=== PATIENT | female | born 1970 | race Caucasian/White ===

== ENCOUNTER 2017-05-31 15:09 | Emergency (ER) | payer MEDICAID ==
[2017-05-31 15:10] VITALS: BMI 25.8
[2017-05-31 15:50] VITALS: TEMP 98.2
[2017-05-31 16:57] VITALS: RESP 18
--- NOTE | 2017-05-31 19:12 | ED PDOC ---
Arrival/HPI - General Chief Complaint: Back Pain Time Seen by Provider: 05/31/17 16:35 Historian: Patient, Family - History of Present Illness Narrative History of Present Illness (Text): 05/31/17 18:43 47-year-old female with a history of chronic low back pain presents today status post fall last night. Patient states around 8 PM last night she developed pain in her low back which caused her to fall backwards hitting her back into the wall. Patient states that at that time she had pain in the neck which was minimal. pt denies hitting her head. no loc. no n/v/d/c. no abdominal pain. no urinary symptoms. Patient states when she woke up today the pain in the neck was more severe. Patient describes a stiffness in the neck as well as pain in the mid neck and midline of the upper back. Patient states she has chronic low back pain and a history of herniated disks with occasional numbness and tingling in the left leg. Patient states these symptoms are being followed by a specialist. Past Medical History - Provider Review Nursing Documentation Reviewed: Yes - Travel History Have you recently traveled outside [place] w/in the past 3 mons?: No - Infectious Disease Hx of Infectious Diseases: None - Tetanus Immunization Tetanus Immunization: Unknown - Cardiac Hx Cardiac Disorders: Yes Hx Hypertension: Yes - Pulmonary Hx Respiratory Disorders: No Hx Tuberculosis: No - Neurological Hx Neurological Disorder: Yes - HEENT Hx HEENT Disorder: No - Renal Hx Renal Disorder: No - Endocrine/Metabolic Hx Endocrine Disorders: Yes Hx Diabetes Mellitus Type 2: Yes - Hematological/Oncological Hx Blood Disorders: No Hx Cancer: No - Integumentary Hx Dermatological Disorder: No - Musculoskeletal/Rheumatological Hx Musculoskeletal Disorders: Yes Hx Back Pain: Yes - Gastrointestinal Hx Gastrointestinal Disorders: No - Genitourinary/Gynecological Hx Genitourinary Disorders: No Hx Sexually Transmitted Diseases: No - Psychiatric Hx Psychophysiologic Disorder: No Hx Depression: No Hx Emotional Abuse: No Hx Physical Abuse: No Hx Substance Use: No - Surgical History Hx Appendectomy: Yes - Anesthesia Hx Anesthesia: Yes - Suicidal Assessment Feels Threatened In Home Enviroment: No Family/Social History - Physician Review Nursing Documentation Reviewed: Yes Family/Social History: Unknown Family HX Smoking Status: Never Smoked Hx Alcohol Use: No Hx Substance Use: No Hx Substance Use Treatment: No Allergies/Home Meds Allergies/Adverse Reactions: Allergies No Known Allergies Allergy (Verified 05/31/17 15:42) Home Medications: Home Meds Medication Instructions Recorded Confirmed Cyclobenzaprine [Cyclobenzaprine 10 mg PO BID 12/16/15 05/31/17 HCl] Escitalopram Oxalate [Lexapro] 5 mg PO BID 12/16/15 05/31/17 Gabapentin [Neurontin] 300 mg PO TID 12/16/15 05/31/17 Lisinopril [Zestril] 10 mg PO BID 12/16/15 05/31/17 Sitagliptin Phos/Metformin HCl 1 each PO BID 12/16/15 05/31/17 [Janumet 50-1,000 mg Tablet] Tramadol HCl [Ultram] 50 mg PO BID PRN 12/16/15 05/31/17 amLODIPine [Norvasc] 5 mg PO DAILY 12/16/15 05/31/17 Review of Systems - Review of Systems Constitutional: absent: Fatigue, Fevers ENT: absent: Sore Throat, Sinus Congestion Respiratory: absent: SOB, Cough Cardiovascular: absent: Chest Pain, Palpitations Gastrointestinal: absent: Abdominal Pain, Nausea, Vomiting Genitourinary Female: absent: Dysuria Musculoskeletal: Back Pain, Neck Pain. absent: Arthralgias Skin: absent: Rash, Pruritis Neurological: absent: Headache, Dizziness Psychiatric: absent: Anxiety, Depression Physical Exam Vital Signs Reviewed: Yes Vital Signs Temp Pulse Resp BP Pulse Ox 05/31/17 18:56 75 18 143/79 99 05/31/17 16:56 79 18 145/86 99 05/31/17 15:49 98.2 F 84 16 148/92 H 99 Temperature: Afebrile Blood Pressure: Hypertensive Pulse: Regular Respiratory Rate: Normal Appearance: Positive for: Well-Appearing, Non-Toxic, Uncomfortable Pain Distress: Mild Mental Status: Positive for: Alert and Oriented X 3 - Systems Exam Head: Present: Atraumatic Pupils: Present: PERRL Extroacular Muscles: Present: EOMI Mouth: Present: Moist Mucous Membranes Nose (Internal): Present: Normal Inspection Neck: Present: MIDLINE TENDERNESS, Paraspinal Tenderness, Trachea Midline, Other (+ bilateral trapezius tenderness. ). No: Normal Range of Motion (stiff ROM Of neck. torticollis), Meningeal Signs Respiratory/Chest: Present: Clear to Auscultation, Good Air Exchange. No: Respiratory Distress, Accessory Muscle Use Cardiovascular: Present: Regular Rate and Rhythm, Normal S1, S2. No: Murmurs Abdomen: No: Tenderness, Rebound, Guarding Back: Present: Normal Inspection, Midline Tenderness (+ midline and paraspinal thoracic tenderness. paraspinal lumbar tenderness; no edema, no erythema, no ecchymosis. ) Upper Extremity: Present: Normal Inspection, Normal ROM, Capillary Refill < 2s, Other (no shoulder tenderness. ). No: Tenderness, Swelling Lower Extremity: Present: Normal Inspection, Normal ROM, Capillary Refill < 2 s Neurological: Present: GCS=15, Motor Func Grossly Intact, Normal Sensory Function, Gait Normal Skin: Present: Warm, Dry, Normal Color. No: Rashes Psychiatric: Present: Alert, Oriented x 3 Medical Decision Making ED Course and Treatment: 05/31/17 20:08 Patient nontoxic well-appearing in no distress with stable vital signs. Toradol, valium, pt with continued pain; percocet added ct neck FINDINGS: VERTEBRAE: No acute cervical spine fractures visualized. No evidence of significant vertebral subluxation. No evidence of acute facet dislocation. DISCS/SPINAL CANAL/NEURAL FORAMINA: Mild to moderate multilevel degenerative disc disease, greatest at the C4-5 and C5-6 levels. SOFT TISSUES: No acute abnormality of the visualized soft tissues is seen. LUNG APICES: No pneumothorax seen. IMPRESSION: - No acute cervical spine fractures identified. - See above for remaining findings. ct t spineFINDINGS: VERTEBRAE: Findings compatible with a mild, chronic compression fracture of T3, associated with 25-50% vertebral height loss. No acute fractures are seen. No evidence of acute vertebral compression fractures. No evidence of significant vertebral subluxation. DISCS/SPINAL CANAL/NEURAL FORAMINA: Mild, multilevel degenerative disc disease. See SOFT TISSUES: No acute abnormality of the visualized soft tissues is seen. IMPRESSION: - No acute thoracic spine fractures identified. - Findings compatible with a mild, chronic compression fracture of T3. - See above for remaining findings. ct l spine; FINDINGS: VERTEBRAE: No acute fractures visualized. No evidence of significant vertebral subluxation. No evidence of acute vertebral compression fractures. DISCS/SPINAL CANAL/NEURAL FORAMINA: Mild, multilevel degenerative disc disease. This is greatest at the L3-4 level. SOFT TISSUES: No acute abnormality of the visualized soft tissues is seen. IMPRESSION: - No acute lumbar spine fractures identified. - See above for remaining findings. Patient reassessment: Feeling better with medications ambulating with a steady gait. Muscle strength 5 out of 5 bilaterally. Patient was advised to stressed the importance of slowly moving the neck. I've advised the patient that if she continues to hold her neck straight and still shows the muscle spasms worsened and the pain will not improve. I've advised the patient of her chronic compression fracture of T3 and stressed the importance of follow-up with a back specialist I advised to followup with the orthopedist/ back specialist within the next 2 days. Return if symptoms worsen persist or new symptoms develop. Patient verbalizes understanding of discharge instructions and need for immediate followup. all aspects of this case were discussed the attending of record. Impression: Back pain, neck pain, chronic compression fracture, T3 Motrin every 6 hours as needed for pain valium one tablet every 8 hours as needed for muscle spasms: May cause drowsiness Followup with the orthopedist within the next 2 days Followup with primary care physician within the next 2 days Return if symptoms worsen persist or if new symptoms develop Reassessment Condition: Re-examined, Improved - RAD Interpretation Radiology Orders: 05/31/17 16:36 CERVICAL SPINE W/O CONTRAST [CT] Stat 05/31/17 16:41 LUMBAR SPINE W/O CONTRAST [CT] Stat THORACIC SPINE W/O CONT [CT] Stat - Medication Orders Current Medication Orders: Discontinued Medications Diazepam (Valium) 5 mg PO ONCE ONE Stop: 05/31/17 16:43 Last Admin: 05/31/17 16:53 Dose: 5 mg Ketorolac Tromethamine (Toradol) 60 mg IM STAT STA Stop: 05/31/17 16:43 Last Admin: 05/31/17 16:53 Dose: 60 mg MAR Pain Assessment Document 05/31/17 16:53 GMD (Rec: 05/31/17 16:53 GMD [id number]) Pain Reassessment Is this a pain reassessment? No Presence of Pain Presence of Pain Yes Location Pain Location Body Site Neck Description Description Constant Intensity of Pain at present 10 Pain Behavior Guarding Facial Grimacing IM Administration Charges Document 05/31/17 16:53 GMD (Rec: 05/31/17 16:53 GMD [id number]) Injection Site MAR Injection Site Left Deltoid Charges for Administration # of IM Administrations 1 Re-Assess: MAULIK Pain Assessment Document 05/31/17 17:53 GMD (Rec: 05/31/17 20:07 GMD [id number]) Pain Reassessment Is this a pain reassessment? Yes Sleep Is patient sleeping during reassessment? No Presence of Pain Presence of Pain Yes Pain Scale Used Pain Scale Used Numeric Location Pain Location Body Site Neck Description Intensity of Pain at present 7 Oxycodone/Acetaminophen (Percocet 5/325 Mg Tab) 1 tab PO STAT STA Stop: 05/31/17 20:06 Disposition/Present on Arrival - Present on Arrival Any Indicators Present on Arrival: No History of DVT/PE: No History of Uncontrolled Diabetes: No Urinary Catheter: No History of Decub. Ulcer: No History Surgical Site Infection Following: None - Disposition Have Diagnosis and Disposition been Completed?: Yes Diagnosis: Neck pain, Back pain, Compression fracture of body of thoracic vertebra Disposition: HOME/ ROUTINE Disposition Time: 20:12 Patient Plan: Discharge Patient Problems: Current Active Problems Problem Status Onset Back pain Acute Compression fracture of body of thoracic vertebra Acute Neck pain Acute Condition: GOOD Discharge Instructions (ExitCare): Upper Back Pain (DC), Vertebral Compression Fracture (DC), Generalized Neck Pain (DC) Additional Instructions: Motrin every 6 hours as needed for pain valium one tablet every 8 hours as needed for muscle spasms: May cause drowsiness Followup with the orthopedist within the next 2 days Followup with primary care physician within the next 2 days Return if symptoms worsen persist or if new symptoms develop Prescriptions: diaZEpam [Valium] 2 mg PO Q8H PRN #6 tab PRN Reason: muscle spasms Ibuprofen [Motrin] 600 mg PO Q6H PRN #20 tab PRN Reason: pain/fever reduction Referrals: David Marr MD [Primary Care Provider] - Follow up with primary Demarcus Wang MD [Staff Provider] - Follow up with primary Martha Randall MD [Staff Provider] - Follow up with primary Forms: [employer] (Pashto), WORK NOTE
--- NOTE | 2017-05-31 19:31 | CT ---
EXAM: CT Cervical Spine Without Intravenous Contrast EXAM DATE/TIME: 05/31/2017 4:36 PM CLINICAL HISTORY: 47 years old, female; Injury or trauma; Fall; Initial encounter; Abrasion; Additional info: Neck pain TECHNIQUE: Axial computed tomography images of the cervical spine without intravenous contrast. All CT scans at this facility use one or more dose reduction techniques, viz.: automated exposure control; ma/kV adjustment per patient size (including targeted exams where dose is matched to indication; i.e. head); or iterative reconstruction technique. Coronal and sagittal reformatted images were created and reviewed. COMPARISON: No relevant prior studies available. FINDINGS: VERTEBRAE: No acute cervical spine fractures visualized. No evidence of significant vertebral subluxation. No evidence of acute facet dislocation. DISCS/SPINAL CANAL/NEURAL FORAMINA: Mild to moderate multilevel degenerative disc disease, greatest at the C4-5 and C5-6 levels. SOFT TISSUES: No acute abnormality of the visualized soft tissues is seen. LUNG APICES: No pneumothorax seen. IMPRESSION: - No acute cervical spine fractures identified. - See above for remaining findings.
--- NOTE | 2017-05-31 19:38 | CT ---
EXAM: CT Thoracic Spine Without Intravenous Contrast EXAM DATE/TIME: 05/31/2017 4:41 PM CLINICAL HISTORY: 47 years old, female; Injury or trauma and signs and symptoms; Fall; Initial encounter; Sprain or strain; Weakness; Additional info: Back pain S/P fall TECHNIQUE: Axial computed tomography images of the thoracic spine without intravenous contrast. All CT scans at this facility use one or more dose reduction techniques, viz.: automated exposure control; ma/kV adjustment per patient size (including targeted exams where dose is matched to indication; i.e. head); or iterative reconstruction technique. Coronal and sagittal reformatted images were created and reviewed. COMPARISON: No relevant prior studies available. FINDINGS: VERTEBRAE: Findings compatible with a mild, chronic compression fracture of T3, associated with 25-50% vertebral height loss. No acute fractures are seen. No evidence of acute vertebral compression fractures. No evidence of significant vertebral subluxation. DISCS/SPINAL CANAL/NEURAL FORAMINA: Mild, multilevel degenerative disc disease. See SOFT TISSUES: No acute abnormality of the visualized soft tissues is seen. IMPRESSION: - No acute thoracic spine fractures identified. - Findings compatible with a mild, chronic compression fracture of T3. - See above for remaining findings.
--- NOTE | 2017-05-31 19:44 | CT ---
EXAM: CT Lumbar Spine Without Intravenous Contrast EXAM DATE/TIME: 05/31/2017 4:41 PM CLINICAL HISTORY: 47 years old, female; Injury or trauma; Fall; Initial encounter; Sprain or strain, lumbar ligaments; Additional info: Back pain/chronic; HX of fall yesterday TECHNIQUE: Axial computed tomography images of the lumbar spine without intravenous contrast. All CT scans at this facility use one or more dose reduction techniques, viz.: automated exposure control; ma/kV adjustment per patient size (including targeted exams where dose is matched to indication; i.e. head); or iterative reconstruction technique. Coronal and sagittal reformatted images were created and reviewed. COMPARISON: No relevant prior studies available. FINDINGS: VERTEBRAE: No acute fractures visualized. No evidence of significant vertebral subluxation. No evidence of acute vertebral compression fractures. DISCS/SPINAL CANAL/NEURAL FORAMINA: Mild, multilevel degenerative disc disease. This is greatest at the L3-4 level. SOFT TISSUES: No acute abnormality of the visualized soft tissues is seen. IMPRESSION: - No acute lumbar spine fractures identified. - See above for remaining findings.
[2017-05-31] MEDS ORDERED: Oxycodone/Acetaminophen 5/325 mg Tab PO STA (20:05)
[2017-05-31 20:28] VITALS: BP 136/73; PULSE 72; O2SAT 98
== END 2017-05-31 20:28 | disposition home or self-care (01) ==
LOC: ED 15:09
DX: M48.54XA Collapsed vertebra, not elsewhere classified, thoracic region, initial encounter for fracture (principal); M54.2 Cervicalgia; M54.5 Low back pain; E11.9 Type 2 diabetes mellitus without complications; I10 Essential (primary) hypertension
CPT/HCPCS: 72125; 72128; 72131; 96372; 99285; J1885

== ENCOUNTER 2017-07-16 18:01 | Emergency (ER) | payer MEDICAID ==
[2017-07-16 18:01] VITALS: BMI 25.8
[2017-07-16 18:15] VITALS: BP 122/86; PULSE 99; RESP 16; TEMP 98.6; O2SAT 98
[2017-07-16] MEDS ORDERED: Sodium Chloride 0.9% 1,000 ML IV STA (19:56)
--- NOTE | 2017-07-16 20:00 | ED PDOC ---
Arrival/HPI - General Chief Complaint: Pain, Chronic Time Seen by Provider: 07/16/17 19:08 Historian: Patient, Family - History of Present Illness Narrative History of Present Illness (Text): you were treated in the ED today for having 2 children, having decreased urinary stream and back pain but otherwise without any fall/head injury/neck pain/loss of consciousness/nausea/vomiting/headache/dizziness/difficulty breathing/chest pain/abdomen pain/numbness/tingling/loss of limb or bowel or bladder function/pain with urination/blood with urination. Refused sexual disease testing or treatment. 07/16/17 19:57 07/16/17 19:58 Time/Duration: > month (1) Symptom Onset: Gradual Symptom Course: Unchanged Quality: Aching Severity Level: 2 Activities at Onset: Rest Context: Sitting Past Medical History - Provider Review Nursing Documentation Reviewed: Yes - Travel History Have you recently traveled outside [place] w/in the past 3 mons?: No - Infectious Disease Hx of Infectious Diseases: None - Tetanus Immunization Tetanus Immunization: Unknown - Cardiac Hx Cardiac Disorders: Yes Hx Hypertension: Yes - Pulmonary Hx Respiratory Disorders: No Hx Tuberculosis: No - Neurological Hx Neurological Disorder: Yes - HEENT Hx HEENT Disorder: No - Renal Hx Renal Disorder: No - Endocrine/Metabolic Hx Endocrine Disorders: Yes Hx Diabetes Mellitus Type 2: Yes - Hematological/Oncological Hx Blood Disorders: No Hx Cancer: No - Integumentary Hx Dermatological Disorder: No - Musculoskeletal/Rheumatological Hx Musculoskeletal Disorders: Yes Hx Back Pain: Yes - Gastrointestinal Hx Gastrointestinal Disorders: No - Genitourinary/Gynecological Hx Genitourinary Disorders: No Hx Sexually Transmitted Diseases: No - Psychiatric Hx Psychophysiologic Disorder: No Hx Depression: No Hx Emotional Abuse: No Hx Physical Abuse: No Hx Substance Use: No - Surgical History Hx Appendectomy: Yes - Anesthesia Hx Anesthesia: Yes - Suicidal Assessment Feels Threatened In Home Enviroment: No Family/Social History - Physician Review Nursing Documentation Reviewed: Yes Family/Social History: No Known Family HX Smoking Status: Never Smoked Hx Alcohol Use: No Hx Substance Use: No Hx Substance Use Treatment: No Allergies/Home Meds Allergies/Adverse Reactions: Allergies No Known Allergies Allergy (Verified 07/16/17 18:08) Home Medications: Home Meds Medication Instructions Recorded Confirmed Cyclobenzaprine [Cyclobenzaprine 10 mg PO BID 12/16/15 07/16/17 HCl] Escitalopram Oxalate [Lexapro] 5 mg PO BID 12/16/15 07/16/17 Gabapentin [Neurontin] 300 mg PO TID 12/16/15 07/16/17 Lisinopril [Zestril] 10 mg PO BID 12/16/15 07/16/17 Sitagliptin Phos/Metformin HCl 1 each PO BID 12/16/15 07/16/17 [Janumet 50-1,000 mg Tablet] Tramadol HCl [Ultram] 50 mg PO BID PRN 12/16/15 07/16/17 amLODIPine [Norvasc] 5 mg PO DAILY 12/16/15 07/16/17 Review of Systems - Review of Systems Constitutional: Normal Eyes: Normal ENT: Normal Respiratory: Normal Cardiovascular: Normal Gastrointestinal: Normal Genitourinary Female: Urine Output Changes Musculoskeletal: Back Pain Skin: Normal Neurological: Normal Endocrine: Normal Hemo/Lymphatic: Normal Psychiatric: Normal Physical Exam Vital Signs Reviewed: Yes Vital Signs Temp Pulse Resp BP Pulse Ox 07/16/17 18:10 98.6 F 99 H 16 122/86 98 Temperature: Afebrile Blood Pressure: Hypertensive Pulse: Regular Respiratory Rate: Normal Appearance: Positive for: Well-Appearing, Non-Toxic, Comfortable Pain Distress: None Mental Status: Positive for: Alert and Oriented X 3 - Systems Exam Head: Present: Atraumatic, Normocephalic Pupils: Present: PERRL Extroacular Muscles: Present: EOMI Conjunctiva: Present: Normal Ears: Present: Normal Mouth: Present: Moist Mucous Membranes Pharnyx: Present: Normal Nose (External): Present: Atraumatic Nose (Internal): Present: Normal Inspection Neck: Present: Normal Range of Motion Cardiovascular: Present: Regular Rate and Rhythm Abdomen: Present: Other (no pulsatile masses). No: Tenderness, Distention, Normal Bowel Sounds, Peritoneal Signs, Rebound, Guarding, McBurney's Point Tender, Rovsing's Sign Present, Hernias, Feeding Tubes, Ostomy Tubes, Mass/ Organomegaly, Scars Back: Present: Paraspinal Tenderness (left lower lumbar discomfort wo redness or spinal tenderness) Upper Extremity: Present: Normal Inspection Lower Extremity: Present: Normal Inspection Neurological: Present: GCS=15, CN II-XII Intact, Speech Normal, Motor Func Grossly Intact Skin: Present: Warm, Normal Color Psychiatric: Present: Alert, Oriented x 3, Normal Insight, Normal Concentration Medical Decision Making ED Course and Treatment: you were treated in the ED today for having 2 children, having decreased urinary stream and back pain but otherwise without any fall/head injury/neck pain/loss of consciousness/nausea/vomiting/headache/dizziness/difficulty breathing/chest pain/abdomen pain/numbness/tingling/loss of limb or bowel or bladder function/pain with urination/blood with urination. Refused sexual disease testing or treatment You were otherwise breathing easily, pink moist lips, smiling and talking with your family easily, good strength/sensation, alert/oriented, walking easily, clear lungs, no abdomen tenderness, no spinal tenderness or redness but mild left lower muscle area discomfort, no fever temp 98.6, stable heart rate 99, stable breathing rate 16, excellent oxygen level 98% room air, elevated blood pressure 122/86 which we recommend repeat in 2-3 days primary care office to determine further treatment, you have blood tests no infection count 7, stable blood level hemoglobin 14/platelets 247, stable chemistry, urine test no acute sign of infection, urine test negative , ct abdomen/pelvis radiology Subtle infiltration of the fat around the bladder/ Very mild bladder wall thickening/Findings could be signs of minimal to mild cystitis., toradol, intravenous fluid, macrobid, observation done in the ED with improvement, counselled to monitor symptoms and thus discharged home with family. 1. Recommend macrobid as directed for bladder infection prevention./ control. 2. Recommend follow-up primary care 2 days to review symptoms, referral to urology for ct findings of bladder findings/protein/ketones/blood in urine to ensure no complications/cancer development, referral to gynecology for ct findings of ovary cyst to ensure no complications/cancer development, referral to gastroenterology clinic for elevated AST 38 to ensure no complications, referral to surgery for small hiatal hernia to ensure no complications. 4. If any worsening pain, fever, chills, nausea, vomiting, difficulty breathing, numbness, loss of limb function, pain with urination or any medical condition then return to the ED. ct a/p FINDINGS: LIMITATIONS: Mild to moderate streak/motion artifact. LUNG BASES: No significant abnormality seen. MEDIASTINUM: Small hiatal hernia. ABDOMEN: LIVER: No acute abnormality of the liver identified. GALLBLADDER AND BILE DUCTS: No CT evidence of acute cholecystitis. No evidence of significant biliary ductal dilatation. PANCREAS: No CT evidence of acute pancreatitis. SPLEEN: No acute abnormality of the spleen identified. ADRENALS: No acute abnormality of the adrenal glands identified. KIDNEYS AND URETERS: No acute abnormality of the kidneys seen. No renal stones, hydronephrosis, or hydroureter seen. STOMACH AND BOWEL: No acute abnormality of the stomach, small bowel or colon identified. No evidence of bowel obstruction. APPENDIX: Normal appendix is not seen, however, there are no significant inflammatory changes visualized in the expected location of the appendix to suggest appendicitis. Recommend clinical correlation. PELVIS: BLADDER: Subtle infiltration of the fat around the bladder. Very mild bladder wall thickening. Findings could be signs of minimal to mild cystitis. REPRODUCTIVE: Very small 1.3 cm left ovarian/adnexal cystic lesion. This has a benign appearance by CT. No followup is warranted based on the imaging findings, unless otherwise clinically indicated. No acute abnormality of the uterus identified. ABDOMEN and PELVIS: INTRAPERITONEAL SPACE: No evidence of free intraperitoneal air or fluid. BONES/JOINTS: Bony structures appear demineralized. SOFT TISSUES: No acute abnormality of the visualized soft tissues is seen. VASCULATURE: No evidence of abdominal aortic aneurysm. No evidence of periaortic hemorrhage. LYMPH NODES: No evidence of diffuse lymphadenopathy. IMPRESSION: - Bladder findings which could be due to minimal to mild cystitis. Recommend clinical correlation. - Otherwise, no evidence of significant acute process. There is no evidence of nephrolithiasis or obstructive uropathy. - See above for remaining findings. Reassessment Condition: Re-examined, Improved - Lab Interpretations Lab Results: 07/16/17 20:45 07/16/17 20:45 Lab Results 07/16/17 21:03: Urine Color yellow, Urine Appearance Clear, Urine pH 5.5, Ur Specific Wykoff 1.025, Urine Protein Trace H, Urine Glucose (UA) Negative, Urine Ketones Trace H, Urine Blood Moderate H, Urine Nitrate Negative, Urine Bilirubin Negative, Urine Urobilinogen 0.2, Ur Leukocyte Esterase Negative, Urine RBC 20 - 25, Urine WBC 2 - 5, Ur Epithelial Cells 6 - 8, Amorphous Sediment Trace 07/16/17 20:45: Sodium 145, Potassium 3.9, Chloride 105, Carbon Dioxide 28, Anion Gap 17, BUN 22 H, Creatinine 0.7, Est GFR ( Amer) > 60, Est GFR ( Non-Af Amer) > 60, Random Glucose 95, Calcium 9.8, Total Bilirubin 0.2, AST 38 H , ALT 23, Alkaline Phosphatase 63, Total Protein 7.9, Albumin 4.4, Globulin 3.5 , Albumin/Globulin Ratio 1.2, Lipase 144 07/16/17 20:45: PT 11.6, INR 1.02, APTT 27.0 07/16/17 20:45: WBC 7.1 D, RBC 5.01, Hgb 14.7, Hct 42.8, MCV 85.4, MCH 29.3, MCHC 34.3, RDW 14.0, Plt Count 247, MPV 10.1, Gran % 52.7, Lymph % (Auto) 36.8 H , Whitfield % (Auto) 7.5 H, Eos % (Auto) 2.4, Baso % (Auto) 0.6, Gran # 3.75, Lymph # (Auto) 2.6, Whitfield # (Auto) 0.5, Eos # (Auto) 0.2, Baso # (Auto) 0.04 I have reviewed the lab results: Yes - RAD Interpretation Radiology Orders: 07/16/17 21:33 ABDOMEN & PELVIS [ABD & PELVIS W/O PO OR IV CONT] [CT] Stat Animal Assisted Therapist: Radiologist - Medication Orders Current Medication Orders: Discontinued Medications Sodium Chloride (Sodium Chloride 0.9%) 1,000 mls @ 1,000 mls/hr IV .Q1H STA Stop: 07/16/17 20:55 Last Admin: 07/16/17 21:01 Dose: 1,000 mls/hr eMAR Start Stop Document 07/16/17 21:01 EQ (Rec: 07/16/17 21:01 EQ [id number]) Intravenous Solution Start Date 07/16/17 Start Time 21:01 Ketorolac Tromethamine (Toradol) 30 mg IVP STAT STA Stop: 07/16/17 19:57 Last Admin: 07/16/17 21:01 Dose: 30 mg MAR Pain Assessment Document 07/16/17 21:01 EQ (Rec: 07/16/17 21:01 EQ [id number]) Pain Reassessment Is this a pain reassessment? Yes IVP Administration Document 07/16/17 21:01 EQ (Rec: 07/16/17 21:01 EQ [id number]) Charges for Administration # of IVP Administrations 1 Disposition/Present on Arrival - Present on Arrival Any Indicators Present on Arrival: No History of DVT/PE: No History of Uncontrolled Diabetes: No Urinary Catheter: No History of Decub. Ulcer: No History Surgical Site Infection Following: None - Disposition Have Diagnosis and Disposition been Completed?: Yes Diagnosis: Cystitis, Hematuria Disposition: HOME/ ROUTINE Disposition Time: 23:41 Patient Plan: Discharge Condition: IMPROVED Discharge Instructions (ExitCare): Blood in the Urine (Hematuria), Adult (DC) Additional Instructions: you were treated in the ED today for having 2 children, having decreased urinary stream and back pain but otherwise without any fall/head injury/neck pain/loss of consciousness/nausea/vomiting/headache/dizziness/difficulty breathing/chest pain/abdomen pain/numbness/tingling/loss of limb or bowel or bladder function/pain with urination/blood with urination. Refused sexual disease testing or treatment You were otherwise breathing easily, pink moist lips, smiling and talking with your family easily, good strength/sensation, alert/oriented, walking easily, clear lungs, no abdomen tenderness, no spinal tenderness or redness but mild left lower muscle area discomfort, no fever temp 98.6, stable heart rate 99, stable breathing rate 16, excellent oxygen level 98% room air, elevated blood pressure 122/86 which we recommend repeat in 2-3 days primary care office to determine further treatment, you have blood tests no infection count 7, stable blood level hemoglobin 14/platelets 247, stable chemistry, urine test no acute sign of infection, urine test negative , ct abdomen/pelvis radiology Subtle infiltration of the fat around the bladder/ Very mild bladder wall thickening/Findings could be signs of minimal to mild cystitis., toradol, intravenous fluid, macrobid, observation done in the ED with improvement, counselled to monitor symptoms and thus discharged home with family. 1. Recommend macrobid as directed for bladder infection prevention./ control. 2. Recommend follow-up primary care 2 days to review symptoms, referral to urology for ct findings of bladder findings/protein/ketones/blood in urine to ensure no complications/cancer development, referral to gynecology for ct findings of ovary cyst to ensure no complications/cancer development, referral to gastroenterology clinic for elevated AST 38 to ensure no complications, referral to surgery for small hiatal hernia to ensure no complications. 4. If any worsening pain, fever, chills, nausea, vomiting, difficulty breathing, numbness, loss of limb function, pain with urination or any medical condition then return to the ED. Prescriptions: Nitrofurantoin Macrocrystals [Macrobid] 100 mg PO Q12 7 Days #14 cap Referrals: David Marr MD [Primary Care Provider] - Follow up with primary Forms: [facility] ([place]), WORK NOTE
[2017-07-16 21:01] LABS: BASO # 0.04 K/mm3 (0.0-2.0); BASO % 0.6 % (0.0-3.0); EOS # 0.2 (0.0-0.7); EOS % 2.4 % (1.5-5.0); GRAN # 3.75 (1.4-6.5); GRAN % 52.7 % (50.0-68.0); HEMOGLOBIN 14.7 g/dL (12.0-16.0); LYMPH # 2.6 (1.2-3.4); LYMPH % 36.8 % (22.0-35.0); MEAN CELL VOLUME 85.4 fl (80.0-105.0); MEAN CORPUSCULAR HEMOGLOBIN 29.3 pg (25.0-35.0); MEAN CORPUSCULAR HGB CONC 34.3 g/dl (31.0-37.0); MEAN PLATELET VOLUME 10.1 fl (7.0-11.0); MONO # 0.5 (0.1-0.6); MONO % 7.5 % (1.0-6.0); RBC 5.01 10^6/uL (3.5-6.1); WHITE BLOOD COUNT 7.1 10^3/ul (4.5-11.0)
[2017-07-16 21:09] LABS: INR 1.02 (0.93-1.08); PROTHROMBIN TIME 11.6 SECONDS (9.4-12.5)
[2017-07-16 21:10] LABS: PH,URINE 5.5 (4.7-8.0); URINE BILIRUBIN NEGATIVE (NEGATIVE); URINE BLOOD MODERATE (NEGATIVE); URINE GLUCOSE (UA) NEGATIVE (NEGATIVE); URINE LEUKOCYTE ESTERASE NEGATIVE Leu/uL (NEGATIVE); URINE PROTEIN TRACE mg/dL (<30 mg/dL); URINE UROBILINOGEN 0.2 E.U./dL (<1 E.U./dL)
[2017-07-16 21:14] LABS: URINE APPEARANCE CLEAR (CLEAR)
[2017-07-16 21:42] LABS: ALB/GLOB RATIO 1.2 (1.1-1.8); ALBUMIN 4.4 g/dL (3.0-4.8); ALT/SGPT 23 U/L (7-56); AST/SGOT 38 U/L (14-36); BLOOD UREA NITROGEN 22 mg/dL (7-21); CALCIUM 9.8 mg/dL (8.4-10.5); GFR AFRICAN-AMERICAN > 60; GFR NON-AFRICAN AMERICAN > 60; LIPASE 144 U/L (23-300)
[2017-07-16 22:49] LABS: URINE AMORPHOUS SEDIMENT TRACE; URINE RBC 20 - 25 /hpf (0-2)
--- NOTE | 2017-07-16 23:26 | CT ---
EXAM: CT Abdomen and Pelvis Without Intravenous Contrast EXAM DATE/TIME: 07/16/2017 9:33 PM CLINICAL HISTORY: 47 years old, female; Pain; Abdominal pain; Flank; Left; Additional info: 47yof, with back pain and hematuria TECHNIQUE: Axial computed tomography images of the abdomen and pelvis without intravenous contrast. All CT scans at this facility use one or more dose reduction techniques, viz.: automated exposure control; ma/kV adjustment per patient size (including targeted exams where dose is matched to indication; i.e. head); or iterative reconstruction technique. Coronal and sagittal reformatted images were created and reviewed. COMPARISON: No relevant prior studies available. FINDINGS: LIMITATIONS: Mild to moderate streak/motion artifact. LUNG BASES: No significant abnormality seen. MEDIASTINUM: Small hiatal hernia. ABDOMEN: LIVER: No acute abnormality of the liver identified. GALLBLADDER AND BILE DUCTS: No CT evidence of acute cholecystitis. No evidence of significant biliary ductal dilatation. PANCREAS: No CT evidence of acute pancreatitis. SPLEEN: No acute abnormality of the spleen identified. ADRENALS: No acute abnormality of the adrenal glands identified. KIDNEYS AND URETERS: No acute abnormality of the kidneys seen. No renal stones, hydronephrosis, or hydroureter seen. STOMACH AND BOWEL: No acute abnormality of the stomach, small bowel or colon identified. No evidence of bowel obstruction. APPENDIX: Normal appendix is not seen, however, there are no significant inflammatory changes visualized in the expected location of the appendix to suggest appendicitis. Recommend clinical correlation. PELVIS: BLADDER: Subtle infiltration of the fat around the bladder. Very mild bladder wall thickening. Findings could be signs of minimal to mild cystitis. REPRODUCTIVE: Very small 1.3 cm left ovarian/adnexal cystic lesion. This has a benign appearance by CT. No followup is warranted based on the imaging findings, unless otherwise clinically indicated. No acute abnormality of the uterus identified. ABDOMEN and PELVIS: INTRAPERITONEAL SPACE: No evidence of free intraperitoneal air or fluid. BONES/JOINTS: Bony structures appear demineralized. SOFT TISSUES: No acute abnormality of the visualized soft tissues is seen. VASCULATURE: No evidence of abdominal aortic aneurysm. No evidence of periaortic hemorrhage. LYMPH NODES: No evidence of diffuse lymphadenopathy. IMPRESSION: - Bladder findings which could be due to minimal to mild cystitis. Recommend clinical correlation. - Otherwise, no evidence of significant acute process. There is no evidence of nephrolithiasis or obstructive uropathy. - See above for remaining findings.
== END 2017-07-16 23:55 | disposition home or self-care (01) ==
LOC: ED 18:01
DX: N30.91 Cystitis, unspecified with hematuria (principal); I10 Essential (primary) hypertension; E11.9 Type 2 diabetes mellitus without complications
CPT/HCPCS: 74176; 80053; 81001; 83690; 85025; 85610; 85730; 87086; 96374; 99283; J1885; J7040

== ENCOUNTER 2018-08-15 08:47 | Outpatient (CLI) | payer MEDICAID | END 2018-08-15 08:48 | disposition home or self-care (01) | LOC: RAD 08:48 | DX: R92.8 Other abnormal and inconclusive findings on diagnostic imaging of breast (principal) ==